=== PATIENT | female | born 1965 | race American Indian/Alaskan Native ===

== ENCOUNTER 2020-08-30 14:19 | Emergency (ER) | payer OTHER ==
--- NOTE | 2020-08-30 15:08 | Emergency Department Report ---
ED ENT HPI - General Chief complaint: Sore Throat Stated complaint: HEADACHE/EARACHE/THROAT/NECK PAIN Time Seen by Provider: 08/30/20 14:57 Source: patient Mode of arrival: Ambulatory Limitations: No Limitations - History of Present Illness Initial comments: 54-year-old -Thai female presents to the emergency room complaining of a sore throat earache headache sneezing x1 week. Patient states that she takes Claritin. She took NyQuil. Has not taken anything for pain. She denies any fever chills or nausea no vomiting no loss of taste or smell. States that she has a past medical history hypertension, heart failure. Has not been able to check in with her primary care provider as she reports they do not answer their phones. MD complaint: sore throat, ear pain Onset/Timin -: week(s) Location: R ear, L ear, throat Severity scale (0 -10): 8 Quality: stabbing, aching Consistency: constant Improves with: none Worsens with: swallowing Context- Dental: history of dental caries Associated Symptoms: fever (Low-grade), pain with swallowing, sore throat. denies: cough, gum swelling, toothache, tinnitus, hearing loss, discharge from ear, rhinorrhea - Related Data Allergies Allergy/AdvReac Type Severity Reaction Status Date / Time pineapple AdvReac Unknown Verified 08/30/20 14:51 shrimp AdvReac Unknown Verified 08/30/20 14:51 tree and shrub pollen AdvReac Unknown Verified 08/30/20 14:51 ED Dental HPI - General Chief complaint: Sore Throat Stated complaint: HEADACHE/EARACHE/THROAT/NECK PAIN Time Seen by Provider: 08/30/20 14:57 Source: patient Mode of arrival: Ambulatory Limitations: No Limitations - Related Data Allergies Allergy/AdvReac Type Severity Reaction Status Date / Time pineapple AdvReac Unknown Verified 08/30/20 14:51 shrimp AdvReac Unknown Verified 08/30/20 14:51 tree and shrub pollen AdvReac Unknown Verified 08/30/20 14:51 ED Review of Systems ROS: Stated complaint: HEADACHE/EARACHE/THROAT/NECK PAIN Other details as noted in HPI Comment: All other systems reviewed and negative ED Past Medical Hx - Social History Smoking Status: Never Smoker Substance Use Type: None ED Physical Exam - General Limitations: No Limitations General appearance: alert, in no apparent distress - Head Head exam: Present: atraumatic, normocephalic - Eye Eye exam: Present: normal appearance, PERRL, EOMI - ENT ENT exam: Present: normal exam, mucous membranes moist, TM's normal bilaterally - Expanded ENT Exam Expanded Ear exam: Present: normal external inspection Teeth exam: Present: dental caries Throat exam: Negative: tonsillar erythema, tonsillomegaly, tonsillar exudate - Neck Neck exam: Present: full ROM, lymphadenopathy. Absent: tenderness - Respiratory Respiratory exam: Present: normal lung sounds bilaterally. Absent: chest wall tenderness, accessory muscle use - Cardiovascular Cardiovascular Exam: Present: regular rate, normal rhythm. Absent: systolic murmur, diastolic murmur, rubs, gallop - Extremities Exam Extremities exam: Present: normal inspection. Absent: pedal edema - Back Exam Back exam: Present: normal inspection - Neurological Exam Neurological exam: Present: alert, oriented X3, normal gait - Psychiatric Psychiatric exam: Present: normal affect, normal mood - Skin Skin exam: Present: warm, dry, intact, normal color. Absent: rash ED Course Vital Signs 08/30/20 14:49 Temperature 99.5 F Pulse Rate 76 Respiratory 18 Rate Blood Pressure 186/75 O2 Sat by Pulse 99 Oximetry ED Medical Decision Making - Lab Data Laboratory Tests 08/30/20 Unknown Group A Strep Rapid Negative - Medical Decision Making 54-year-old -Thai female presents to the emergency room complaining of a sore throat earache headache sneezing x1 week. Patient states that she takes Claritin. She took NyQuil. Has not taken anything for pain. She denies any fever chills or nausea no vomiting no loss of taste or smell. States that she has a past medical history hypertension, heart failure. Has not been able to check in with her primary care provider as she reports they do not answer their phones. Not too impressed with her examination but will send out a rapid strep. Instructed patient she needs to increase her fluid intake. Take Tylenol or ibuprofen as needed for pain management. And follow-up with a primary care provider. Critical care attestation.: If time is entered above; I have spent that time in minutes in the direct care of this critically ill patient, excluding procedure time. ED Disposition Clinical Impression: Allergic rhinitis Disposition: TO HOME OR SELFCARE Is pt being admited?: No Does the pt Need Aspirin: No Condition: Stable Instructions: Allergic Rhinitis, Adult, [id number] Additional Instructions: Strep test is negative. I recommend ibuprofen or Tylenol for pain. Increase your water intake. You can use [id number] Cepacol throat spray. Take your Claritin daily use your Flonase daily and follow-up with a primary care provider. Referrals: PRIMARY CARE, [Primary Care Provider] - 3-5 Days KENDRA IRVING MD [Staff Physician] - 3-5 Days SAUL EPPERSON MD [Staff Physician] - 3-5 Days WILFRIDO REYES MD [Staff Physician] - 3-5 Days Forms: Work/School Release Form(ED)
[2020-08-30 15:23] VITALS: BP 186/75
== END 2020-08-30 16:09 | disposition home or self-care (01) ==
LOC: ED 14:19
DX: J30.9 Allergic rhinitis, unspecified (principal); Z91.013 Allergy to seafood; Z88.8 Allergy status to other drugs, medicaments and biological substances
CPT/HCPCS: 87116; 87430

== ENCOUNTER 2021-01-09 11:05 | Emergency (ER) | payer SELFPAY ==
[2021-01-09] MEDS ORDERED: ACETAMINOPHEN 325 MG TAB PO ONE (11:48)
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
--- NOTE | 2021-01-09 12:24 | Cat Scan Report ---
CT HEAD WITHOUT CONTRAST INDICATION / CLINICAL INFORMATION: head injury/dizzy/CUBA. TECHNIQUE: Axial imaging performed from the skull apex through the skull base without the use of cont rast. Sagittal and coronal reformatted images. All CT scans at this location are performed using CT dose reduction for [place] by means of automated exposure control. COMPARISON: None available. FINDINGS: CEREBRAL PARENCHYMA: No significant abnormality. No acute territorial infarct. HEMORRHAGE: None. EXTRA-AXIAL SPACES: Normal in size and morphology for the patient's age. VENTRICULAR SYSTEM: Normal in size and morphology for the patient's age. MIDLINE SHIFT OR HERNIATION: None. CEREBELLUM / BRAINSTEM: No significant abnormality. CALVARIUM: No significant abnormality. ORBITS: Normal as visualized. PARANASAL SINUSES / MASTOID AIR CELLS: Normal as visualized. SOFT TISSUES of HEAD: No significant abnormality. ADDITIONAL FINDINGS: None. IMPRESSION: No acute intracranial abnormality. Signer Name: Rod Foley Jr, MD Signed: 01/09/2021 12:19 PM Workstation Name: [id number]
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
[2021-01-09 12:54] LABS: Bilirubin,Urine NEG (Negative); Blood,Urine NEG (Negative); Color,Urine Yellow (Yellow); Mucus,Urine FEW /HPF; Protein,Urine <15 mg/dL mg/dL (Negative); Urobilinogen,Urine < 2.0 mg/dL (<2.0)
[2021-01-09] MEDS ORDERED: MECLIZINE 25 MG TAB PO ONE (13:03)
[2021-01-09] MEDS ORDERED: ONDANSETRON 4 MG ODT TAB PO ONE (13:04)
[2021-01-09 13:35] LABS: Basophils # (Auto) 0.1 K/mm3 (0.0-0.1); Basophils % (Auto) 1.1 % (0.0-1.8); Eosinophils # (Auto) 0.2 K/mm3 (0.0-0.4); Eosinophils % (Auto) 3.3 % (0.0-4.3); Hemoglobin 13.3 gm/dl (10.1-14.3); Lymphocytes % (Auto) 45.5 % (13.4-35.0); Mean Corpuscular HGB Conc 33 % (30-34); Mean Corpuscular Volume 84 fl (79-97); Monocytes # (Auto) 0.6 K/mm3 (0.0-0.8); Platelet Count 443 K/mm3 (140-440); Red Blood Count 4.78 M/mm3 (3.65-5.03); Red Cell Distribution Width 14.7 % (13.2-15.2)
[2021-01-09 13:50] LABS: Alanine Aminotransferase 17 units/L (7-56); Albumin 4.6 g/dL (3.9-5); Blood Urea Nitrogen 15 mg/dL (7-17); Calcium 10.2 mg/dL (8.4-10.2); Hemolysis Index 6
[2021-01-09 13:52] LABS: BUN/Creatinine Ratio 21
[2021-01-09 15:58] VITALS: BP 161/82
--- NOTE | 2021-01-10 11:07 | Electrocardiograph Report ---
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
== END 2021-01-09 15:58 | disposition home or self-care (01) ==
LOC: ED 11:05
DX: S06.0X9A Concussion with loss of consciousness of unspecified duration, initial encounter (principal); I10 Essential (primary) hypertension; S09.90XA Unspecified injury of head, initial encounter; J45.909 Unspecified asthma, uncomplicated; X58.XXXA Exposure to other specified factors, initial encounter; Y93.89 Activity, other specified; Y92.89 Other specified places as the place of occurrence of the external cause; Y99.8 Other external cause status
CPT/HCPCS: 36415; 70450; 80053; 81001; 84484; 85025; 93005; 99284; Q0162